=== PATIENT | male | born 1980 | race American Indian/Alaskan Native ===

== ENCOUNTER 2025-03-04 16:19 | Emergency (ER) | payer OTHER ==
[~2025-03-04] VITALS: Ht 182.9 cm; Wt 96.0 kg
[~2025-03-04 16:19] MED LIST: HYDROCODON-ACE1 EA11 PO; NORCO 5-325 TA1 EACH PO
[2025-03-04 17:28] VITALS: BP 144/102
== END 2025-03-04 17:27 | disposition home or self-care (01) ==
LOC: ED 16:19
DX: K60.2 Anal fissure, unspecified (principal)
CPT/HCPCS: 99283

== ENCOUNTER 2025-03-28 16:00 | Emergency (ER) | payer OTHER ==
[~2025-03-28] VITALS: Ht 182.9 cm; Wt 97.1 kg
--- OUTSIDE RECORDS SUMMARY | ~2025-03-28 | XMS | Continuity of Care Document ---
Demographics + + + | Address | [address] | | | [place] [address] | + + + | Preferred Language | Unknown | + + + | Marital Status | Never | + + + | Mosque Affiliation | Unknown | + + + | Race | or | + + + | Ethnic Group | Not or | + + + Author + + + | Author | [facility] | + + + | Organization | [facility] | + + + | Address | [address] | | | [place] [address] | + + + | Phone | | + + + Care Team Providers + + + + | Care Director Of Vendor Management Name | Role | Phone | + + + + Unavailable | Unavailable | + + + + Unavailable | Unavailable | + + + + Allergies No information. Encounters No information. Functional Status No information. Immunizations No information. Medications + + + + | date | description | facility | + + + + | (no date) | [facility]OC[facility] | [facility] | | | BIT/ACETAMINOPHEN | [facility] | + + + + Problems + + + + | date | description | [facility] | + + + + | 2025-03-04 00:00 | [facility] | | | [facility] | + + + + Procedures No information. Results/Labs No information. Social History +--------+ + + | date | description | facility | +--------+ + + Vital Signs + + + +---------+ | date | measurement | value | units | + + + +---------+ | 2025-03-04 00:00 | BMI | 28.7 | kg/m2 | + + + +---------+ | 2025-03-04 00:00 | BP_diastolic | 102 | mmHg | + + + +---------+ | 2025-03-04 00:00 | BP_systolic | 144 | mmHg | + + + +---------+ | 2025-03-04 00:00 | heart_rate | 78 | /min | + + + +---------+ | 2025-03-04 00:00 | height_metric | 182.88 | cm | + + + +---------+ | 2025-03-04 00:00 | height_standard | 72 | in | + + + +---------+ | 2025-03-04 00:00 | o2_saturation | 98 | % | + + + +---------+ | 2025-03-04 00:00 | respiration_rate | 15 | /min | + + + +---------+ | 2025-03-04 00:00 | | 97.6 | F | | | temperature_standar | | | | | d | | | + + + +---------+ | 2025-03-04 00:00 | weight_metric | 96 | kg | + + + +---------+ | 2025-03-04 00:00 | weight_standard | 211.643 | lb | + + + +---------+"
--- OUTSIDE RECORDS SUMMARY | 2025-03-28 16:12 | XMS ---
PreManage Notification: CAMERON GARCIA Security Senior Nurse Manager Events No recent Security Events currently on file CRITERIA MET - [facility] - 2 Visits in 30 Days CARE PROVIDERS There are no care providers on record at this time. Randall has no Care Guidelines for this patient. Jeni VISIT COUNT (12 MO.) [address] [facility] TOTAL 2 NOTE: Visits indicate total known visits. ED/[facility] VISIT TRACKING (12 MO.) 03/28/2025 16:00 [facility] [place] TYPE: Emergency COMPLAINT: - PROSTATE PROBLEM 03/04/2025 16:20 [facility] TYPE: Emergency COMPLAINT: - GROIN PAIN DIAGNOSES: - Anal fissure, unspecified - Other specified diseases of anus and rectum INPATIENT VISIT TRACKING (12 MO.) No inpatient visits to display in this time frame [id number]
[2025-03-28 17:06] LABS: BASOPHILS 0.7 % (0.2-1.2); EOSINOPHILS 1.2 % (0.8-7.0); LYMPHOCYTES 41.4 % (21.8-53.1); MCH 31.8 PG (25.7-32.2); MCHC 35.9 g/dL (32.3-36.5); MCV 88.4 fL (79.0-92.2); MONOCYTES 7.7 % (5.3-12.2); NEUTROPHILS 48.8 % (34.0-67.9); RBC 4.91 M/uL (4.63-6.08)
[2025-03-28 17:21] LABS: ALT (SGPT) 26.0 U/L (14-59); AST (SGOT) 27.0 U/L (15-37); GLOMERULAR FILTRATION RATE,EST 83.0 mL/min (>60); PROTEIN, TOTAL 7.4 g/dL (6.4-8.2); UREA NITROGEN 19.0 mg/dL (7-18)
[2025-03-28 17:27] LABS: BLOOD/HGB, URINE NEGATIVE (Negative); KETONE, URINE NEGATIVE (Negative); LEUK ESTERASE, URINE NEGATIVE (negative); NITRITE, URINE NEGATIVE (negative)
[2025-03-28] MEDS ORDERED: DOXYCYCLINE HY100 MG PO (17:40)
[2025-03-28 18:35] VITALS: BP 127/88
== END 2025-03-28 18:38 | disposition home or self-care (01) ==
LOC: ED 16:00
PROVIDERS: Emergency Medicine
DX: N41.9 Inflammatory disease of prostate, unspecified (principal)
CPT/HCPCS: 36415; 74177; 80053; 81003; 85025; 99284-25; Q9967